=== PATIENT | female | born 1985 | race American Indian/Alaskan Native ===

== ENCOUNTER 2020-09-15 03:17 | Emergency (ER) | payer SELFPAY ==
[2020-09-15] MEDS ORDERED: SODIUM CHLORIDE 0.9% 1000 ML 1,000 ML IV ONE ×2 (03:52→09:47)
--- NOTE | 2020-09-15 05:25 | Emergency Department Report ---
ED Psych HPI - General Chief Complaint: Alcohol Stated Complaint: ETOH Time Seen by Provider: 09/15/20 03:47 Source: EMS Mode of arrival: Stretcher - History of Present Illness Initial Comments: Patient is a 35-year-old F [place] female who was found in a nightclub belligerent. After getting outside the patient then became very upset is just been crying uncontrollably. Patient has been drinking. Patient was give no additional history at this time. - Related Data Allergies Allergy/AdvReac Type Severity Reaction Status Date / Time haloperidol [From Haldol] Allergy Swelling Verified 09/15/20 07:12 ED Review of Systems ROS: Stated complaint: ETOH Other details as noted in HPI Comment: All other systems reviewed and negative ED Past Medical Hx - Social History Smoking Status: Never Smoker Substance Use Type: Alcohol ED Physical Exam - General Limitations: No Limitations General appearance: alert, appears intoxicated, in distress (Crying uncontrollably.) - Head Head exam: Present: atraumatic, normocephalic - Eye Eye exam: Present: normal appearance, PERRL, EOMI - ENT ENT exam: Present: mucous membranes moist - Neck Neck exam: Present: normal inspection - Respiratory Respiratory exam: Present: normal lung sounds bilaterally. Absent: respiratory distress, wheezes, rales, rhonchi - Cardiovascular Cardiovascular Exam: Present: regular rate, normal rhythm, normal heart sounds. Absent: systolic murmur, diastolic murmur, rubs, gallop - GI/Abdominal GI/Abdominal exam: Present: soft, normal bowel sounds. Absent: distended, tenderness, guarding, rebound - Extremities Exam Extremities exam: Present: normal inspection - Back Exam Back exam: Present: normal inspection - Neurological Exam Neurological exam: Present: alert, oriented X3 - Psychiatric Psychiatric exam: Present: normal affect, normal mood - Skin Skin exam: Present: warm, dry, intact, normal color. Absent: rash ED Course Vital Signs 09/15/20 09/15/20 09/15/20 03:37 05:58 10:30 Temperature 97.7 F Pulse Rate 87 85 64 Respiratory 18 18 16 Rate Blood Pressure 122/78 Blood Pressure 129/77 98/56 [Left] O2 Sat by Pulse 100 100 100 Oximetry 09/15/20 09/15/20 12:10 18:44 Temperature Pulse Rate 74 68 Respiratory 16 16 Rate Blood Pressure Blood Pressure 90/62 110/64 [Left] O2 Sat by Pulse 96 100 Oximetry ED Medical Decision Making - Lab Data Result diagrams: 09/15/20 06:48 09/15/20 06:48 Lab Results 09/15/20 Range/Units 04:51 Plasma/Serum Alcohol 0.49 H (0-0.07) % - Medical Decision Making Patient monitored until she was clinically sober and discharged home Critical care attestation.: If time is entered above; I have spent that time in minutes in the direct care of this critically ill patient, excluding procedure time. ED Disposition Clinical Impression: Alcohol intoxication Disposition: DC-01 TO HOME OR SELFCARE Is pt being admited?: No Does the pt Need Aspirin: No Condition: Stable Instructions: Binge-Drinking Information, Adult Referrals: SUMIT AYALA MD [Primary Care Provider] - 3-5 Days
[2020-09-15] MEDS ORDERED: THIAMINE 100 MG, FOLIC ACID 1 MG, MULTIPLE VITAMIN INJ, ADULT 10 ML in SODIUM CHLORIDE ... IV ONE (06:02)
[2020-09-15] MEDS ORDERED: LORazepam 2 MG/ML VIAL IV ONE (07:04)
[2020-09-15 07:05] LABS: Hematocrit 35.2 % (30.3-42.9); Hemoglobin 11.9 gm/dl (10.1-14.3); Mean Corpuscular HGB Conc 34 % (30-34); Mean Corpuscular Volume 95 fl (79-97); Platelet Count 265 K/mm3 (140-440); Red Cell Distribution Width 17.8 % (13.2-15.2)
[2020-09-15 07:28] LABS: Alanine Aminotransferase 9 units/L (7-56); Albumin 4.3 g/dL (3.9-5); BUN/Creatinine Ratio 13; Blood Urea Nitrogen 8 mg/dL (7-17); Calcium 8.1 mg/dL (8.4-10.2); Hemolysis Index 7
[2020-09-15] MEDS ORDERED: LORazepam 2 MG/ML VIAL IM PRN (10:52)
[2020-09-15] MEDS ORDERED: ONDANSETRON 4 MG ODT TAB PO PRN (10:52)
[2020-09-15] MEDS ORDERED: DEXTROSE 50% IN WATER (25GM) 50 ML VIAL IV PRN (10:52)
--- NOTE | 2020-09-15 10:54 | Event Note ---
Date: 09/15/20 ER documentation and nursing documentation reviewed and appreciated. Patient apparently presented with painless and nontraumatic alcohol intoxication this morning. The patient is currently sleeping on her stretcher. She awakens and is arousable. She denies physical pain and reports that she is visiting from [place]. She further reports that there is nobody who can come by and pick her up. Supportive care ordered, patient currently receiving banana bag, Accu-Cheks every 4 hours ordered, as needed dextrose ordered. Have requested EMS documentation. Once clinically sober, patient should be suitable for discharge. 09/15/2020; 05: 00 p.m. Patient now ambulatory. She is still intoxicated, but much less so than on prior examination. She does not have anybody who can come by and pick her up. She does not have her phone on her. Should be dischargeable within the next hour or 2. 09/15/2020; 06: 43 PM Patient awake, alert, oriented, sober, walking with a steady gait, exhibiting decision-making capacity. Denies physical pain at this time. Blood pressure 110 systolic. Noted to be eating without difficulty. Suitable for discharge at this point time. Patient was counseled to exercise restraint in the future when consuming alcohol. Vital Signs 09/15/20 09/15/20 09/15/20 03:37 05:58 10:30 Temperature 97.7 F Pulse Rate 87 85 64 Respiratory 18 18 16 Rate Blood Pressure 122/78 Blood Pressure 129/77 98/56 [Left] O2 Sat by Pulse 100 100 100 Oximetry Lab Results 09/15/20 09/15/20 09/15/20 Range/Units 04:51 06:48 06:48 WBC 2.6 L (4.5-11.0) K/mm3 RBC 3.70 (3.65-5.03) M/mm3 Hgb 11.9 (10.1-14.3) gm/dl Hct 35.2 (30.3-42.9) % MCV 95 (79-97) fl MCH 32 (28-32) pg MCHC 34 (30-34) % RDW 17.8 H (13.2-15.2) % Plt Count 265 (140-440) K/mm3 Lymph % (Auto) Lna Seg Neutrophils % Lna Sodium 144 (137-145) mmol/L Potassium 4.4 (3.6-5.0) mmol/L Chloride 106.5 (98-107) mmol/L Carbon Dioxide 23 (22-30) mmol/L Anion Gap 19 mmol/L BUN 8 (7-17) mg/dL Creatinine 0.6 (0.6-1.2) mg/dL Estimated GFR > 60 ml/min BUN/Creatinine Ratio 13 % Glucose 96 (65-100) mg/dL Calcium 8.1 L (8.4-10.2) mg/dL Total Bilirubin 0.20 (0.1-1.2) mg/dL AST 20 (5-40) units/L ALT 9 (7-56) units/L Alkaline Phosphatase 53 (35-129) units/L Total Protein 7.0 (6.3-8.2) g/dL Albumin 4.3 (3.9-5) g/dL Albumin/Globulin Ratio 1.6 % Plasma/Serum Alcohol 0.49 H (0-0.07) %
[2020-09-15 12:08] LABS: Total Cells Counted 100
[2020-09-15 12:10] LABS: Platelet Estimate Consistent w Auto; Target Cells Few; Tear Drop Cells Few
[2020-09-15 18:45] VITALS: BP 110/64
== END 2020-09-15 19:18 | disposition home or self-care (01) ==
LOC: ED 03:17
DX: F10.129 Alcohol abuse with intoxication, unspecified (principal); Y90.9 Presence of alcohol in blood, level not specified
CPT/HCPCS: 36415; 80053; 82962; 85007; 85025; 96361; 96365; 96375; 99284; J2060; J3411; J7030; 80320; G0480